=== PATIENT | male | born 1980 | race Caucasian/White ===

== ENCOUNTER 2020-12-07 11:31 | Emergency (ER) | payer OTHER ==
[~2020-12-07] VITALS: Ht 180.3 cm; Wt 72.6 kg
[~2020-12-07 11:31] MED LIST: ADVIL200 M1 PO; CEPHALEXIN500 MG PO; CLINDAMYCIN HC300 MG PO; CYCLOBENZAPRINE10 MG PO; IBUPROFEN800 MG PO; NAPROXEN SODIU550 MG PO; NORCO 5-325 TA1 EACH PO; PERCOCET 7.5-31 EACH PO; VALIUM5 MG PO
== END 2020-12-07 13:17 | disposition home or self-care (01) ==
LOC: ED 11:31
DX: S93.401A Sprain of unspecified ligament of right ankle, initial encounter (principal); X50.9XXA Other and unspecified overexertion or strenuous movements or postures, initial encounter; I10 Essential (primary) hypertension; F17.200 Nicotine dependence, unspecified, uncomplicated; Z79.899 Other long term (current) drug therapy
CPT/HCPCS: 73610; 99283-25

== ENCOUNTER 2021-07-03 22:18 | Emergency (ER) | payer OTHER ==
[~2021-07-03] VITALS: Ht 180.3 cm; Wt 65.8 kg
== END 2021-07-03 22:35 | disposition home or self-care (01) ==
LOC: ED 22:18
DX: S39.012A Strain of muscle, fascia and tendon of lower back, initial encounter (principal); V03.90XA Pedestrian on foot injured in collision with car, pick-up truck or van, unspecified whether traffic or nontraffic accident, initial encounter; I10 Essential (primary) hypertension; F17.200 Nicotine dependence, unspecified, uncomplicated
CPT/HCPCS: 99284

== ENCOUNTER 2021-07-06 23:06 | Emergency (ER) | payer OTHER ==
[~2021-07-06] VITALS: Ht 180.3 cm; Wt 65.8 kg
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
[2021-07-06] MEDS ORDERED: ADVIL200 MG PO (23:33)
[2021-07-07] MEDS ORDERED: HYDROCODON-ACE1 EA10 PO (02:45)
== END 2021-07-07 03:10 | disposition home or self-care (01) ==
LOC: ED 23:06
DX: S39.012A Strain of muscle, fascia and tendon of lower back, initial encounter (principal); S29.012A Strain of muscle and tendon of back wall of thorax, initial encounter; I10 Essential (primary) hypertension; F17.200 Nicotine dependence, unspecified, uncomplicated
CPT/HCPCS: 72070; 72100; 99283-25

== ENCOUNTER 2021-07-12 18:45 | Emergency (ER) | payer OTHER ==
[~2021-07-12] VITALS: Ht 180.3 cm; Wt 65.8 kg
[~2021-07-12 18:45] MED LIST changes: +ADVIL200 MG PO; +HYDROCODON-ACE1 EA10 PO
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
[2021-07-12] MEDS ORDERED: CYCLOBENZAPRINE10 MG PO (23:40)
== END 2021-07-12 23:56 | disposition home or self-care (01) ==
LOC: ED 18:45
DX: M54.2 Cervicalgia (principal); M54.5 Low back pain; M54.6 Pain in thoracic spine; I10 Essential (primary) hypertension; F17.200 Nicotine dependence, unspecified, uncomplicated
CPT/HCPCS: 72125; 99283-25